=== PATIENT | female | born 1995 | race Caucasian/White ===

== ENCOUNTER 2019-07-03 07:58 | Day surgery (SDC) | payer BC ==
[~2019-07-03] VITALS: Ht 157.5 cm; Wt 104.3 kg
[~2019-07-03 07:58] MED LIST: ALBUAER3 IN; MONT10TA23 PO
[2019-07-03] MEDS ORDERED: ceFAZolin 1GM/50ML 50 ML IV ONE (08:42)
[2019-07-03] MEDS ORDERED: SUCCINYLCHOLINE CHLORIDE 20 MG/ML 10ML VIAL IV ONE (08:48)
[2019-07-03] MEDS ORDERED: LIDOCAINE 1% (LOCAL ANESTH.) PF 5ml SDV ONE (08:48)
[2019-07-03] MEDS ORDERED: HYDROmorphone HCL 2 MG/ML VL IV PRN ×2 (09:00)
[2019-07-03] MEDS ORDERED: NALOXONE HCL 0.4 MG/ML VIAL IV PRN (09:00)
[2019-07-03] MEDS ORDERED: ONDANSETRON HCL 4 MG/2 ML VIAL IV PRN (09:00)
[2019-07-03] MEDS ORDERED: BUPIVACAINE 0.25% INJ 50ML VIAL ONE (09:17)
[2019-07-03 11:36] VITALS: BP 130/68
== END 2019-07-03 11:45 | disposition home or self-care (01) ==
LOC: SUR 07:58
PROVIDERS: ATTEND Surgery
DX: K80.20 Calculus of gallbladder without cholecystitis without obstruction (principal); J45.909 Unspecified asthma, uncomplicated; E66.01 Morbid (severe) obesity due to excess calories; G47.33 Obstructive sleep apnea (adult) (pediatric); Z79.899 Other long term (current) drug therapy; Z68.41 Body mass index [BMI] 40.0-44.9, adult
CPT/HCPCS: 47562; 88304; J0330; J0690; J1170; J3490; J7030